=== PATIENT | male | born 1975 | race Caucasian/White ===

== ENCOUNTER 2016-07-06 10:45 | Observation (INO) | payer SELFPAY ==
[~2016-07-06] VITALS: Ht 175.3 cm; Wt 79.0 kg
[2016-07-06] VITALS (7 sets, daily range): BP systolic 140–173; BP diastolic 86–105; PULSE 71–88; RESP 16–24; TEMP 98.1–98.6; O2SAT 98–99
[~2016-07-06 10:45] MED LIST: AUGM875T PO; IBUP400T20 PO
[2016-07-06] MEDS ORDERED: SODIUM CHLORIDE 0.9% FLUSH 10 ML FLUSH IVF PRN (11:15)
--- NOTE | 2016-07-06 11:24 | PD ---
HPI Chief Complaint: Anxiety Time Seen by Provider: 11:10 Travel History International Travel<30 days: No Contact w/Intl Traveler<30days: No Traveled to known affect area: No History of Present Illness HPI 40-year-old male presents to the emergency department for evaluation of anxiety that has been intermittent over the past 4 months. He states it worsened over the weekend. He denies history of anxiety prior to 4 months ago. He states that he will have racing thoughts, his palms will become sweaty and he'll have palpitations. He also reports intermittent chest tightness. He has none at this time. Patient denies any cardiac history. He denies any family cardiac history. Patient states that when he feels anxious, his blood pressure loss arrives. Patient denies any chronic medical problems or taking any prescribed medications. Patient states he gets frustrated easily lately and is easier to anger that he used to be. He denies any suicidal or homicidal ideations. He states that he does drink approximately 4 days a week, at least 5 beers at a time and will use tobacco when he is drinking. He also states he smokes marijuana. Patient denies any recent travel or surgery. No leg edema. No hemoptysis. No prior history of DVT/PE. Patient is concerned he may be having "cardiac problems". PFSH Past Medical History Anxiety: Yes Diminished Hearing: No GERD: Yes Social History Alcohol Use: Yes (5 beers 4x weekly) Tobacco Use: Yes Substance Use: Yes (marijuana) Allergies-Medications (Allergen,Severity, Reaction): Coded Allergies: No Known Allergies (Unverified , 07/06/16) Reported Meds & Prescriptions Reported Meds & Active Scripts Active No Active Prescriptions or Reported Medications Review of Systems Except as stated in HPI: all other systems reviewed are Neg Physical Exam Narrative GENERAL: Well-nourished, well-developed male patient, ambulatory. Afebrile. Patient appears anxious on exam. SKIN: Focused skin assessment warm/dry. HEAD: Normocephalic. Atraumatic. EYES: No scleral icterus. No injection or drainage. NECK: Supple, trachea midline. No JVD or lymphadenopathy. CARDIOVASCULAR: Regular rate and rhythm without murmurs, gallops, or rubs. RESPIRATORY: Breath sounds equal bilaterally. No accessory muscle use. Lungs sounds are clear to auscultation. GASTROINTESTINAL: Abdomen soft, non-tender, nondistended. MUSCULOSKELETAL: No cyanosis, or edema. BACK: Nontender without obvious deformity. No CVA tenderness. Data Data Last Documented VS Vital Signs Date Time Temp Pulse Resp B/P Pulse Ox O2 Delivery O2 Flow Rate FiO2 07/06/16 12:16 84 16 140/94 98 Room Air 07/06/16 10:47 98.1 Orders Electrocardiogram (07/06/16 11:06) Basic Metabolic Panel (Bmp) (07/06/16 11:06) Ckmb (Isoenzyme) Profile (07/06/16 11:06) Complete Blood Count With Diff (07/06/16 11:06) Magnesium (Mg) (07/06/16 11:06) Troponin I (07/06/16 11:06) Chest, Single Ap (07/06/16 11:06) Ecg Monitoring (07/06/16 11:06) Bilateral Bp Monitoring (07/06/16 11:06) Iv Access Insert/Monitor (07/06/16 11:06) Oximetry (07/06/16 11:06) Oxygen Administration (07/06/16 11:06) Sodium Chloride 0.9% Flush (Ns Flush) (07/06/16 11:15) Hydroxyzine Pamoate (Vistaril) (07/06/16 11:15) Admit Order (Ed Use Only) (07/06/16 12:48) Labs Laboratory Tests Test 07/06/16 11:21 White Blood Count 8.7 TH/MM3 Red Blood Count 4.74 MIL/MM3 Hemoglobin 15.7 GM/DL Hematocrit 44.4 % Mean Corpuscular Volume 93.6 FL Mean Corpuscular Hemoglobin 33.0 PG Mean Corpuscular Hemoglobin 35.3 % Concent Red Cell Distribution Width 13.0 % Platelet Count 188 TH/MM3 Mean Platelet Volume 8.5 FL Neutrophils (%) (Auto) 79.4 % Lymphocytes (%) (Auto) 12.5 % Monocytes (%) (Auto) 5.6 % Eosinophils (%) (Auto) 0.8 % Basophils (%) (Auto) 1.7 % Neutrophils # (Auto) 6.9 TH/MM3 Lymphocytes # (Auto) 1.1 TH/MM3 Monocytes # (Auto) 0.5 TH/MM3 Eosinophils # (Auto) 0.1 TH/MM3 Basophils # (Auto) 0.1 TH/MM3 CBC Comment DIFF FINAL Differential Comment Sodium Level 138 MEQ/L Potassium Level 4.0 MEQ/L Chloride Level 103 MEQ/L Carbon Dioxide Level 26.2 MEQ/L Anion Gap 9 MEQ/L Blood Urea Nitrogen 16 MG/DL Creatinine 1.18 MG/DL Estimat Glomerular Filtration 69 ML/MIN Rate Random Glucose 124 MG/DL Calcium Level 8.9 MG/DL Magnesium Level 2.0 MG/DL Total Creatine Kinase 97 U/L Troponin I LESS THAN 0.02 NG/ML MDM Medical Decision Making Medical Screen Exam Complete: Yes Emergency Medical Condition: Yes Medical Record Reviewed: Yes Interpretation(s) chest x-ray - CONCLUSION: Normal examination. Differential Diagnosis Anxiety versus electrolyte abnormality versus unlikely ACS Narrative Course 40-year-old male presents to the emergency department for evaluation anxiety of the past 4 months. He states the symptoms worsened over the weekend with palpitations, chest tightness, sweaty palms, racing thoughts. He also states he has been easier to anger. Patient's physical and symptoms are consistent with anxiety. He has not currently been diagnosed with anxiety or followed up with a primary care physician or psychiatrist for this. EKG, CBC, BMP, magnesium, CK, troponin, chest x-ray are ordered and pending due to intermittent chest tightness. Patient has only had sips of water today. EKG shows sinus rhythm, heart rate 79, inverted T waves in leads III and aVF. There is not a previous EKG to compare this with. CBC shows no acute abnormality. BMP shows no acute abnormality. CK is 97. Troponin is less than 0.02. Chest x-ray is normal. I discussed findings with my attending physician, Dr. Hough, who recommends 23 hour observation in the chest pain center due to inverted T waves in leads III and aVF and no previous EKG to compare with. The patient verbalizes agreement with this. Diagnosis Primary Impression: Chest pain Qualified Code: R07.9 - Chest pain, unspecified type Additional Impression: Anxiety Admitting Information Admitting Physician Requests: Observation Scripts No Active Prescriptions or Reported Meds Madhuri Hardin Jul 06, 2016 11:24
[2016-07-06 11:44] LABS: AUTOMATED NEUTROPHIL # 6.9 TH/MM3 (1.8-7.7); BASOPHIL # 0.1 TH/MM3 (0-0.2); BASOPHIL % 1.7 % (0.0-2.0); EOSINOPHIL # 0.1 TH/MM3 (0-0.4); EOSINOPHIL % 0.8 % (0.0-4.0); HEMATOCRIT 44.4 % (39.0-51.0); HEMO FLAGS DIFF FINAL; LYMPH % 12.5 % (9.0-44.0); LYMPHOCYTE # 1.1 TH/MM3 (1.0-4.8); MEAN CELL VOLUME 93.6 FL (80.0-100.0); MEAN CORPUSCULAR HGB CONC 35.3 % (32.0-36.0); MONO % 5.6 % (0.0-8.0); NEUT % 79.4 % (16.0-70.0); PLATELET COUNT 188 TH/MM3 (150-450); RED BLOOD COUNT 4.74 MIL/MM3 (4.50-5.90); WHITE BLOOD COUNT 8.7 TH/MM3 (4.0-11.0)
--- NOTE | 2016-07-06 11:56 | RADRPT ---
EXAM DATE/TIME: 07/06/2016 11:22 [facility] COMPARISON: No previous studies available for comparison. INDICATIONS : Palpitations MEDICAL HISTORY : anxiety SURGICAL HISTORY : None. ENCOUNTER: Initial ACUITY: 1 day PAIN SCORE: Non-responsive. LOCATION: Bilateral chest FINDINGS: A single view of the chest demonstrates the lungs to be symmetrically aerated without evidence of mas s, infiltrate or effusion. The cardiomediastinal contours are unremarkable. Osseous structures are intact. CONCLUSION: Normal examination. Cesar Navarro MD on July 06, 2016 at 11:54 Board Certified Radiologist. This report was verified electronically.
[2016-07-06 12:15] LABS: ANION GAP 9 MEQ/L (5-15); BICARBONATE 26.2 MEQ/L (21.0-32.0); BLOOD UREA NITROGEN 16 MG/DL (7-18); CHLORIDE 103 MEQ/L (98-107); GLOMERULAR FILTRATION RATE 69 ML/MIN (>89); SODIUM (NA) 138 MEQ/L (136-145)
[2016-07-06 12:19] LABS: CREATINE KINASE 97 U/L (39-308)
[2016-07-06] MEDS ORDERED: ASPIRIN 81 MG CHEW TAB CHEW ONE (13:15)
[2016-07-06] MEDS ORDERED: ACETAMINOPHEN/HYDROcodone 325 MG/7.5 MG TAB PO PRN (14:00)
[2016-07-06] MEDS ORDERED: ONDANSETRON HCL 4 MG/2 ML VIAL IV PRN (14:00)
[2016-07-06] MEDS ORDERED: PANTOPRAZOLE SOD 40 MG DELAYED RELEASE TAB PO SCH (14:00)
[2016-07-06] MEDS ORDERED: ACETAMINOPHEN 500 MG CPLT PO PRN (14:00)
[2016-07-06] MEDS ORDERED: SODIUM CHLORIDE 0.9% FLUSH 5 ML FLUSH IVF PRN (14:00)
--- NOTE | 2016-07-06 14:35 | HHI.HP ---
HPI Primary Care Physician No Primary Care Physician Chief Complaint Anxiety History of Present Illness This is a 40-year-old male that presents to ED complaining of increased anxiety over the last 4 months. He states he had issues with anxiety 15 years ago and was given medication for at the time with anxiety essentially went away. He states that he will suddenly become anxious his heart rate will meat pickler, fingers will get tingly and hands will get sweaty, and he will get short of breath. He did not initially mention chest discomfort however when I asked him about having a discomforts he replied "once in a blue muniz I will get a quick grabbing sensation in my chest that lasts a split second." Denies recent illnesses. Denies fevers or chills. Review of Systems General: Patient denies fevers, chills recent, and recent travel HEENT: Patient denies headache, sore throat, difficulty swallowing. Cardiovascular: Has the chest discomfort as mentioned above. He states at times when he gets anxious that his heart rate will meat pickler. His hands will get sweaty but denies diaphoresis. No syncope. Respiratory: He gets short of breath. Denies inspirational chest discomfort. Denies coughing wheezing or hemoptysis. GI: Patient denies nausea, vomiting, diarrhea, abdominal pain, bloody stools. Musculoskeletal: Patient denies joint pain or edema. Denies calf pain or edema. Neurovascular: He gets tingling sensations in his fingers. Patient denies numbness and weakness in extremities. Denies headache. Endocrine: Denies polyuria and polydipsia. Hematologic: Denies easy bruising. Skin: Denies rash or itching. Past Family Social History Allergies: Coded Allergies: No Known Allergies (Unverified , 07/06/16) Past Medical History Anxiety and tobacco abuse. Denies hypertension, hyperlipidemia, diabetes, and CAD. Past Surgical History Right rotator cuff repair and inguinal hernia repair. Reported Medications Reported Meds & Active Scripts Active No Active Prescriptions or Reported Medications Active Ordered Medications Current Medications Medications (Trade) Dose Ordered Sig/Elsa Route Start Time Stop Time Status Last Admin (NS Flush) 2 ml UNSCH PRN IVF 07/06/16 14:00 (NS Flush) 2 ml BID IVF 07/06/16 21:00 (Tylenol) 500 mg Q4H PRN PO 07/06/16 14:00 ([place] 7.5-325 Mg) 1 tab Q4H PRN PO 07/06/16 14:00 (Zofran Inj) 4 mg Q6H PRN IV 07/06/16 14:00 (Protonix) 40 mg DAILY PO 07/06/16 14:00 07/06/16 14:01 (Aspirin) 325 mg DAILY PO 07/07/16 09:00 Family History Denies family history of CAD. Social History Patient smokes about a half a pack of cigarettes daily for to 5 times a week while also drinking 5-6 beers 4-5 times a week. Smokes marijuana a couple times a week, last time use marijuana was 3 days ago. Physical Exam Vital Signs Vital Signs Date Time Temp Pulse Resp B/P Pulse Ox O2 Delivery O2 Flow Rate FiO2 07/06/16 13:59 98 21 07/06/16 12:16 84 16 140/94 98 Room Air 07/06/16 11:22 99 Room Air 07/06/16 11:22 99 Room Air 07/06/16 11:22 84 18 170/99 99 Room Air 07/06/16 10:47 98.1 88 24 173/105 99 Room Air Physical Exam GENERAL: This is a well-nourished, well-developed patient, in no apparent distress. Patient speaks in clear complete sentences. Patient is pleasant. His is also at the bedside. HEENT: Head is atraumatic and normocephalic. Neck is supple without lymphadenopathy and trachea is midline. No JVD or carotid bruits. CARDIOVASCULAR: Regular rate and rhythm without murmurs, gallops, or rubs. RESPIRATORY: Clear to auscultation. Breath sounds equal bilaterally. No wheezes , rales, or rhonchi. Chest wall is nontender. No use of accessory muscles. GASTROINTESTINAL: Abdomen is nontender, nondistended. Abdomen soft. No obvious pulsatile mass or bruit. No CVA tenderness. Strong femoral pulses bilaterally. Normal bowel sounds in all quadrants. MUSCULOSKELETAL: Patient is moving upper and lower extremities freely. No calf tenderness or edema, no Homans sign. Strong pulses in upper and lower extremities. NEUROLOGICAL: Patient is alert and oriented. Cranial nerves 2-12 are grossly intact. No focal deficits and speech is clear. SKIN: No rash and turgor is normal. Laboratory Laboratory Tests Test 07/06/16 11:21 White Blood Count 8.7 Red Blood Count 4.74 Hemoglobin 15.7 Hematocrit 44.4 Mean Corpuscular Volume 93.6 Mean Corpuscular Hemoglobin 33.0 Mean Corpuscular Hemoglobin 35.3 Concent Red Cell Distribution Width 13.0 Platelet Count 188 Mean Platelet Volume 8.5 Neutrophils (%) (Auto) 79.4 Lymphocytes (%) (Auto) 12.5 Monocytes (%) (Auto) 5.6 Eosinophils (%) (Auto) 0.8 Basophils (%) (Auto) 1.7 Neutrophils # (Auto) 6.9 Lymphocytes # (Auto) 1.1 Monocytes # (Auto) 0.5 Eosinophils # (Auto) 0.1 Basophils # (Auto) 0.1 CBC Comment DIFF FINAL Differential Comment Sodium Level 138 Potassium Level 4.0 Chloride Level 103 Carbon Dioxide Level 26.2 Anion Gap 9 Blood Urea Nitrogen 16 Creatinine 1.18 Estimat Glomerular Filtration 69 Rate Random Glucose 124 Calcium Level 8.9 Magnesium Level 2.0 Total Creatine Kinase 97 Troponin I LESS THAN 0.02 Result Diagram: 07/06/16 1121 07/06/16 1121 Imaging Last 24 hours Impressions Chest X-Ray 07/06/16 1106 Signed Impressions: Service Date/Time: Wednesday, July 06, 2016 11:22 - CONCLUSION: Normal examination. Cesar Navarro MD Course Initial EKG has sinus rhythm rate of [address] segment depressions or elevations. There is inverted T-wave in lead 3. Assessment and Plan Assessment and Plan * Atypical chest pain: Patient will continue to have serial cardiac enzymes and EKGs for ruling out purposes. He will be seen by Dr. Machado of cardiology in the chest pain center and at that time we'll determine further plan. * Anxiety: Patient will need to follow-up with local physician. * Tobacco abuse: Patient has been counseled on the importance of smoking cessation. Дмитрий Juarez Jul 06, 2016 14:35
[2016-07-06 16:13] LABS: CREATINE KINASE 75 U/L (39-308)
--- NOTE | 2016-07-06 16:22 | HHI.DCPOC ---
Discharge Care Plan Diagnosis: (1) Anxiety (2) Chest pain, atypical (3) Tobacco abuse Goals to Promote Your Health * To prevent worsening of your condition and complications * To maintain your health at the optimal level Directions to Meet Your Goals Take your medications as prescribed Follow your dietary instruction Follow activity as directed Keep your appointments as scheduled Take your immunizations and boosters as scheduled If your symptoms worsen call your PCP, if no PCP go to Urgent Care Center or Emergency Room Smoking is Dangerous to Your Health. Avoid second hand smoke Call the 24-hour hour crisis hotline for domestic abuse at Дмитрий Juarez Jul 06, 2016 16:22
[2016-07-06] MEDS ORDERED: SODIUM CHLORIDE 0.9% FLUSH 5 ML FLUSH IVF SCH (21:00)
[2016-07-07] MEDS ORDERED: ASPIRIN 325 MG TAB PO SCH (09:00)
--- NOTE | 2016-07-07 12:10 | EKG ---
Date Performed: 07/06/2016 Time Performed: 14:22:40 PTAGE: 40 years EKG: Sinus rhythm NONSPECIFIC T-WAVE ABNORMALITY BORDERLINE ECG PREVIOUS TRACING : 07/06/2016 11.17 Since previous tracing, no significant change noted DOCTOR: Jah Joseph Interpretating Date/Time 07/07/2016 12:04:11
--- NOTE | 2016-07-07 12:10 | EKG ---
Date Performed: 07/06/2016 Time Performed: 11:17:11 PTAGE: 40 years EKG: Sinus rhythm NONSPECIFIC T-WAVE ABNORMALITY BORDERLINE ECG NO PREVIOUS TRACING DOCTOR: Jah Joseph Interpretating Date/Time 07/07/2016 12:04:32
== END 2016-07-06 17:12 | disposition home or self-care (01) ==
LOC: NEPD 10:45 → NEDA 12:50 → NEPFCDU 15:26
PROVIDERS: ADMIT Internal Medicine Interventional Cardiology; ATTEND Internal Medicine Interventional Cardiology
DX: R07.9 Chest pain, unspecified (principal); F41.9 Anxiety disorder, unspecified; R00.2 Palpitations; F12.90 Cannabis use, unspecified, uncomplicated; K21.9 Gastro-esophageal reflux disease without esophagitis; F17.210 Nicotine dependence, cigarettes, uncomplicated; F10.20 Alcohol dependence, uncomplicated; R06.02 Shortness of breath; R94.31 Abnormal electrocardiogram [ECG] [EKG]
CPT/HCPCS: 71010; 80048; 82550; 83735; 84484; 85025; 93005; 99285; G0378